=== PATIENT | female | born 1965 | race African-American/Black ===

== ENCOUNTER 2019-12-03 10:27 | Inpatient (IN) | payer MEDICAID ==
[~2019-12-03] VITALS: Ht 175.3 cm; Wt 130.2 kg
[2019-12-03 11:23] LABS: BASOPHILS % 0.5 % (0.0-2.0); EOSINOPHILS % 0.6 % (0.0-5.0); HEMATOCRIT. 39.8 % (36.0-48.0); HEMOGLOBIN. 13.7 g/dL (12.0-16.0); LYMPHOCYTES % 24.4 % (20.0-50.0); MEAN CORPUSCULAR VOLUME 89.8 fL (81.0-99.0); MONOCYTES % 6.8 % (2.0-8.0); NEUTROPHILS % 67.7 % (40.0-76.0); PLATELET 250 x1000/uL (130-400); RED BLOOD CELL COUNT 4.43 mill/uL (4.2-5.4); RED CELL DISTRIBUTION WIDTH 14.1 % (11.6-14.6)
[2019-12-03 11:28] LABS: CHLORIDE 101 mEq/L (98-107)
[2019-12-03] MEDS ORDERED: AMLODIPINE 5MG TABLET PO ONE (12:30)
[2019-12-03] MEDS ORDERED: LOSARTAN POTASSIUM 100 MG TABLET PO ONE (12:45)
[2019-12-03 14:00] VITALS: BP 141/75
[2019-12-03] MEDS ORDERED: DEXTROSE 50% WATER 50ML SYRINGE IV PRN (14:15)
[2019-12-03] MEDS ORDERED: DOCUSATE SODIUM 100MG CAPSULE PO PRN (14:15)
[2019-12-03] MEDS ORDERED: ONDANSETRON HCL 4MG/2ML INJ IV PRN (14:15)
[2019-12-03] MEDS ORDERED: IPRATROPIUM/ALBUTEROL 0.5-3(2.5)MG/3ML NEB NEB PRN (14:15)
[2019-12-03] MEDS ORDERED: ACETAMINOPHEN 325MG TABLET PO PRN (14:15)
[2019-12-03] MEDS ORDERED: NA PHOS,M-B/NA PHOS,DI-BA ENEMA 118ML PR PRN (14:15)
[2019-12-03] MEDS: AMLODIPINE 10MG TABLET PO SCH (14:15)
[2019-12-03] MEDS ORDERED: CLONIDINE 0.1MG TABLET PO PRN (14:15)
[2019-12-03] MEDS ORDERED: MAGNESIUM/ALUMINUM HYDROXIDE/SIMETHICONE 30ML UDC PO PRN (14:15)
[2019-12-03] MEDS ORDERED: GUAIFENESIN 200MG/10ML SUGAR FREE UDC PO PRN (14:15)
[2019-12-03] MEDS ORDERED: NITROGLYCERIN 0.4MG TABLET SL SL PRN (14:15)
[2019-12-03 14:31] LABS: ETHANOL BLOOD < 10 mg/dL
[2019-12-03 14:36] LABS: HDL CHOLESTEROL 43 mg/dL (40-59)
[2019-12-03 14:47] LABS: LDL CHOLESTEROL 141 mg/dL (5-100)
[2019-12-03 15:28] LABS: *AMPHETAMINES SCREEN URINE NEGATIVE (NEGATIVE); *BARBITURATES SCREEN URINE NEGATIVE (NEGATIVE); *BENZODIAZEPINES SCREEN URINE NEGATIVE (NEGATIVE); *COCAINE SCREEN URINE NEGATIVE (NEGATIVE); METHADONE URINE SCREEN NEGATIVE (NEGATIVE); OPIATES URINE SCREEN NEGATIVE (NEGATIVE)
[2019-12-03 15:29] LABS: CANNABINOID URINE SCREEN NEGATIVE (NEGATIVE); PHENCYCLIDINE URINE SCREEN NEGATIVE (NEGATIVE)
[2019-12-03 16:26] VITALS: BP 141/75
[2019-12-03] MEDS: INSULIN LISPRO 100 UNITS/ML SUBCUT SCH ×2 (16:55→21:00)
[2019-12-03] MEDS: BLOOD SUGAR DIAGNOSTIC STRIP TEST SCH ×2 (16:55→21:00)
[2019-12-03] MEDS: SUCRALFATE 1 G/10 ML UDC PO SCH ×2 (17:14→21:39)
[2019-12-03 18:35] VITALS: BP 141/75
[2019-12-03] MEDS ORDERED: ZOLP10TA2 PO (18:50)
[2019-12-03] MEDS ORDERED: LOSA100T32 PO (18:51)
[2019-12-03] MEDS ORDERED: AMLO10TA4 PO (18:53)
[2019-12-03] MEDS ORDERED: HYDR-3281 PO (18:54)
[2019-12-03 20:00] VITALS: BP 137/83
[2019-12-03] MEDS ORDERED: ZOLPIDEM TARTRATE 5MG TABLET PO PRN (21:00)
[2019-12-03] MEDS: LISINOPRIL 20MG TABLET PO SCH (21:00)
[2019-12-03] MEDS: FAMOTIDINE 20MG TABLET PO SCH (21:39)
[2019-12-03] MEDS: ENOXAPARIN 40MG/0.4ML SYR SUBCUT SCH (21:39)
[2019-12-03] MEDS: HYDRALAZINE HCL 50MG TABLET PO SCH (21:40)
[2019-12-03] MEDS: METOPROLOL TARTRATE 25MG TABLET PO SCH (21:40)
[2019-12-03 23:49] LABS: CREATINE KINASE 146 IU/L (26-192)
[2019-12-03 23:51] LABS: CREATINE KINASE MB FRACTION < 1.0 ng/mL (0.5-3.6)
[2019-12-04] VITALS: BP 115/76
[2019-12-04] MEDS: KETOROLAC 15MG/ML VIAL IV PRN ×2 (00:29→06:31)
[2019-12-04 04:00] VITALS: BP 129/85
[2019-12-04] MEDS: HYDRALAZINE HCL 50MG TABLET PO SCH ×2 (06:00→06:30)
[2019-12-04] MEDS: SUCRALFATE 1 G/10 ML UDC PO SCH (06:30)
[2019-12-04] MEDS: BLOOD SUGAR DIAGNOSTIC STRIP TEST SCH (06:35)
[2019-12-04] MEDS: INSULIN LISPRO 100 UNITS/ML SUBCUT SCH (06:36)
[2019-12-04] MEDS ORDERED: HYDR25TA PO (06:41)
[2019-12-04] MEDS: METOPROLOL TARTRATE 25MG TABLET PO SCH (07:57)
[2019-12-04] MEDS: FAMOTIDINE 20MG TABLET PO SCH (07:57)
[2019-12-04] MEDS: AMLODIPINE 10MG TABLET PO SCH (07:57)
[2019-12-04] MEDS: ENOXAPARIN 40MG/0.4ML SYR SUBCUT SCH (07:58)
[2019-12-04 08:00] VITALS: BP 136/88
[2019-12-04 08:07] LABS: CREATINE KINASE 144 IU/L (26-192)
[2019-12-04 08:09] LABS: CREATINE KINASE MB FRACTION < 1.0 ng/mL (0.5-3.6)
[2019-12-04] MEDS ORDERED: ASPIRIN 325MG EC TABLET PO SCH (09:00)
[2019-12-04] MEDS: LISINOPRIL 20MG TABLET PO SCH (09:00)
[2019-12-04 10:24] VITALS: BP 136/88
== END 2019-12-04 11:13 | disposition home or self-care (01) | DRG 243 ==
LOC: ER 10:43 → 5WST 13:30 → ENRESERV 15:33
PROVIDERS: ADMIT Internal Medicine; ATTEND Internal Medicine
DX: K21.9 Gastro-esophageal reflux disease without esophagitis (principal); E66.01 Morbid (severe) obesity due to excess calories; E11.9 Type 2 diabetes mellitus without complications; R07.89 Other chest pain; E83.51 Hypocalcemia; E83.52 Hypercalcemia; I10 Essential (primary) hypertension; Z68.41 Body mass index [BMI] 40.0-44.9, adult
CPT/HCPCS: 36415; 71045; 80053; 80061; 80305; 80320; 82550; 82553; 82962; 83036; 83880; 84484; 85025; 93005; 93970; 96372; 99285; J1650; J1885; G0480

== ENCOUNTER 2025-05-17 14:50 | Emergency (ER) | payer MEDICAID ==
[~2025-05-17] VITALS: Ht 175.3 cm; Wt 110.0 kg
[~2025-05-17 14:50] MED LIST: AMLO-905 PO; HYDR-4346 PO; HYDR25TA PO; LOSA100T33 PO; ZOLP10TA2 PO
[2025-05-17 14:54] VITALS: TEMP 37.1; O2SAT 99
[2025-05-17 15:47] LABS: BASOPHILS % 0.6 % (0.0-2.0); EOSINOPHILS % 0.6 % (0.0-5.0); HEMATOCRIT. 38.2 % (36.0-48.0); HEMOGLOBIN. 12.6 g/dL (12.0-16.0); LYMPHOCYTES % 24.3 % (20.0-50.0); MEAN CORPUSCULAR HEMOGLOBIN 29.3 pg (28.0-32.0); MEAN CORPUSCULAR VOLUME 88.8 fL (81.0-99.0); MEAN PLATELET VOLUME 8.6 fl (7.4-10.4); MONOCYTES % 6.8 % (2.0-8.0); NEUTROPHILS % 67.7 % (40.0-76.0); PLATELET 272 x1000/uL (130-400); RED BLOOD CELL COUNT 4.31 mill/uL (4.2-5.4); WHITE BLOOD COUNT 8.4 x1000/uL (4.5-11.0)
[2025-05-17 17:06] LABS: CHLORIDE 107 mEq/L (98-107); POTASSIUM 3.9 mEq/L (3.5-5.1); SODIUM 140 mEq/L (136-145)
[2025-05-17 17:07] LABS: CALCIUM 9.5 mg/dL (8.7-10.4); CARBON DIOXIDE 24 mEq/L (21-32)
[2025-05-17 17:12] LABS: CREATININE 0.9 mg/dL (0.6-1.0); GLUCOSE 105 mg/dL (70-105); TROPONIN I HIGH SENSITIVITY 5 ng/L (3.0-34); UREA NITROGEN BLOOD 14 mg/dL (9-23)
[2025-05-17] MEDS: ASPIRIN 81MG TABLET PO SCH (17:42)
[2025-05-17] MEDS: AMLODIPINE 10MG TABLET PO SCH (17:42)
[2025-05-17 18:25] VITALS: BP 140/87; PULSE 80; RESP 16; O2SAT 100
== END 2025-05-17 18:27 | disposition home or self-care (01) ==
LOC: ER 14:50
DX: M54.12 Radiculopathy, cervical region (principal); R07.89 Other chest pain; E11.9 Type 2 diabetes mellitus without complications; I10 Essential (primary) hypertension; M19.90 Unspecified osteoarthritis, unspecified site; Z79.899 Other long term (current) drug therapy; Z96.659 Presence of unspecified artificial knee joint; Z88.8 Allergy status to other drugs, medicaments and biological substances
CPT/HCPCS: 80048; 83880; 85025; 84484; 36415; 71045; 93005; 99285; Z7610